=== PATIENT | female | born 1990 | race Caucasian/White ===

== ENCOUNTER 2025-07-25 10:43 | Outpatient (CLI) | payer MEDICAID, SELFPAY ==
[2025-07-25 22:22] LABS: Coronavirus 19, PCR Not Detected (NotDetected); Influenza A, PCR Not Detected (NotDetected); Influenza B, PCR Not Detected (NotDetected)
== END 2025-07-25 23:59 ==
LOC: LAB.DROPOF 07-27 10:43
PROVIDERS: Visit Provider Nurse Practitioner Family
DX: J06.9 Acute upper respiratory infection, unspecified (principal); J02.9 Acute pharyngitis, unspecified
CPT/HCPCS: 87631